=== PATIENT | male | born 1955 | race Caucasian/White ===

== ENCOUNTER 2018-02-04 01:07 | Outpatient (CLI) | payer OTHER, SELFPAY ==
--- NOTE | 2018-02-04 11:13 | DI.US_ITS ---
SYMPTOM/DIAGNOSIS: BILAT KIDNEY STONES, N20.0 RENAL ULTRASOUND: The right kidney measures 9.2 x 4.2 x 4.1 cm. The left kidney measures 9.8 x 6.1 x 5.6 cm. The pre-void bladder contains 26 cc. The post void bladder contains 17 cc. Bilateral ureteral jets are visualized. The prostatae is enlarged at 40 cc. Note is made of bilateral echogenic foci in the kidneys, the largest measures 4 mm in the mid pole of the left kidney. SUMMARY: Findings consistent with nephrolithiasis. There is no evidence of obstruction. The bladder is incompletely evaluated with the pre-void bladder volume of 26 cc, post void bladder volume is 17 cc. There is moderate prostatic enlargement.
== END 2018-02-04 01:27 ==
PROVIDERS: PCP Internal Medicine; Visit Provider Urology
DX: N20.0 Calculus of kidney (principal); N40.0 Benign prostatic hyperplasia without lower urinary tract symptoms
CPT/HCPCS: 76770; 99213

== ENCOUNTER 2018-08-18 00:20 | Outpatient (CLI) | payer OTHER, SELFPAY ==
--- NOTE | 2018-08-18 13:46 | DI.US_ITS ---
SYMPTOMS/DIAGNOSIS: MONITOR STONE BURDEN, BILATERAL KIDNEY STONES, CALCULUS OF KIDNEY-N20.0 RENAL ULTRASOUND: Renal ultrasound was performed according to the usual protocol. The kidneys are normal in size and shape. There are multiple calculi bilaterally. No evidence of hydronephrosis on either side. There appears to be an 8 mm calculus in the bladder. Comparison with examination of 02/04/18 shows no gross interval change in appearance of the multiple renal calculi noted.
== END 2018-08-18 00:40 ==
PROVIDERS: PCP Internal Medicine; Visit Provider Urology
DX: N20.0 Calculus of kidney (principal)
CPT/HCPCS: 76770

== ENCOUNTER → 2018-09-15 07:53 | Outpatient (BNVA) | payer OTHER, SELFPAY | PROVIDERS: PCP Internal Medicine; Visit Provider Urology | DX: N21.0 Calculus in bladder (principal); N20.0 Calculus of kidney | CPT/HCPCS: 99213 ==

== ENCOUNTER 2019-10-02 14:02 | Emergency (ER) | payer OTHER, SELFPAY ==
[2019-10-02 14:15] VITALS: BP 144/86; PULSE 118; RESP 16; TEMP 37; O2SAT 95
[2019-10-02 14:59] LABS: Abs Immature Grans 0.02 k/cumm (0.0-0.09); Absolute Basophil Count 0.01 k/cumm (0.0-0.2); Absolute Eosinophil Count 0.09 k/cumm (0.0-0.7); Absolute Lymphocyte Count 1.02 k/cumm (1.2-3.4); Absolute Monocyte Count 1.01 k/cumm (0.11-0.7); Basophils % 0.1; Eosinophils % 0.9; HCT 44.2 % (40.0-50.0); HGB 14.6 g/dL (13.5-17.5); Immature Grans % 0.2 %; Lymphocytes % 9.9; Mean Corpuscular Volume 93.8 fL (80-95); Mean Platelet Volume 9.4 fL (8.0-11.0); Monocytes % 9.8; Neutrophils % 79.1; Platelet Count 322 x1000/uL (130-400); RBC 4.71 m/cumm (4.50-6.00); RBC Distribution Width 13.3 % (11.8-14.1); White Blood Cell Count 10.35 k/cumm (4.4-10.8)
[2019-10-02 15:08] LABS: Bilirubin Small (Negative); Blood Large (Negative); Clarity Cloudy (Clear); Glucose Negative (Negative); Ketones 15 mg/dL (Negative); Leukocyte Esterase Negative (Negative); Nitrite Negative (Negative); Urobilinogen 0.2 EU/dL (Up TO 0.2)
[2019-10-02 15:10] LABS: ALT 7 U/L (16-63); AST 12 U/L (15-37); Albumin 2.8 g/dL (3.4-5.0); Alkaline Phosphatase 79 U/L (46-116); Anion Gap 9.8 mmol/L (3-11); BUN 15 mg/dL (7-18); Bilirubin, Total 0.6 mg/dL (0.2-1.0); CO2 28.2 mmol/L (21.0-32.0); CREATININE 0.98 mg/dL (0.70-1.30); Calcium 9.3 mg/dL (8.5-10.1); Chloride 101 mmol/L (98-107); Glucose 106 mg/dL (74-106); Potassium 4.1 mmol/L (3.5-5.1); Sodium 139 mmol/L (136-145); Total Protein 6.8 g/dL (6.4-8.2)
[2019-10-02 15:12] LABS: INR 1.3 (0.9-1.1); PTT Activated 39.7 sec (21.0-31.4); Prothrombin Time 12.7 sec (9.3-11.0)
[2019-10-02 15:20] LABS: C & S Indicated? Yes; RBC >50 HPF (0-2)
[2019-10-02 15:59] VITALS: BP 106/71; PULSE 98; RESP 14; TEMP 36.7; O2SAT 94
--- NOTE | 2019-10-02 16:12 | W.ED.GENAD ---
Discharge Plan Disposition Patient Disposition: HOME Condition: Fair Discharge Details Chief Complaint: Urinary Clinical Impression: Hematuria Primary Care Provider: Louis Esparza ED Provider: Emmie Stroud Home Meds and New Rx's Prescriptions: Continued atorvastatin [Lipitor] 20 MG tablet 20 mg PO QPM RF: 0 Xarelto 20 mg tablet 20 mg BID RF: 0 Discontinued clopidogrel [Plavix] 75 MG tablet 75 mg PO DAILY RF: 0 Discharge Instructions Instructions: Hematuria (ED) Additional Instructions: It does not appear that your bleeding enough to cause anemia at this time. I did speak with vascular surgery who advised continuing the Xarelto but stopping her Plavix. We discussed the risk and benefits of continuing your Xarelto and they feel that it is important that you continue with this at this time. However, if you develop clots in your urine, lightheadedness, weakness or other new/worsening symptoms I would like you to return immediately. Otherwise, I would like for you to have repeat blood work on Saturday as well as close follow-up with Dr. Guerra. Referrals: Rosendo Guerra MD [ [facility] STAFF PHYSICIAN] - Louis Esparza MD [Primary Care Provider] - Discharge Data Discharge Date/Time-TO BE ENTERED AT DEPARTURE: 10/02/19 17:25 Medical Decision Making <TAMMY Saeed - Last Filed: 10/03/19 08:23> 63-year-old gentleman anticoagulated with both Plavix and Xarelto as of yesterday because of a diagnosis of DVT presents with asymptomatic hematuria. He appears well, nontoxic and is hemodynamically stable. I will obtain a CBC, CMP, coags and urinalysis. Patient may very well only need a urology follow-up as he is asymptomatic but given his comorbidities, anticoagulated with both Plavix and Xarelto, I would like to speak with his vascular team, Dr. Vee Laboratory values unremarkable for obvious emergent process. Call placed to his vascular team at [facility] At time of shift change, care was signed out to TAMMY Stroud pending a vascular consultation Medical Records Medical records reviewed: Yes I reviewed the patient's medical records. Lab Data Lab results reviewed: Yes I reviewed the patient's lab results. Lab results narrative: 10/02/19 14:55 Urine - Reflex from Ua Urine Culture - Pending Laboratory Tests Range/Units 10/02/19 10/02/19 10/02/19 14:50 14:50 14:50 WBC (4.4-10.8) k/cumm 10.35 RBC (4.50-6.00) m/cumm 4.71 Hgb (13.5-17.5) g/dL 14.6 Hct (40.0-50.0) % 44.2 MCV (80-95) fL 93.8 MCH (27.0-33.0) pg 31.0 MCHC (32.0-36.0) g/dL 33.0 RDW (11.8-14.1) % 13.3 Plt Count (130-400) x1000/uL 322 MPV (8.0-11.0) fL 9.4 Immature Gran % % 0.2 Neutrophils % 79.1 Lymphocytes % 9.9 Monocytes % 9.8 Eosinophils % 0.9 Basophils % 0.1 Absolute Neutrophils (1.2-6.7) k/cumm 8.20 H Absolute Lymphocytes (1.2-3.4) k/cumm 1.02 L Absolute Monocytes (0.11-0.7) k/cumm 1.01 H Absolute Eosinophils (0.0-0.7) k/cumm 0.09 Absolute Basophils (0.0-0.2) k/cumm 0.01 PT (9.3-11.0) sec 12.7 H INR (0.9-1.1) 1.3 H APTT (21.0-31.4) sec 39.7 H Sodium (136-145) mmol/L 139 Potassium (3.5-5.1) mmol/L 4.1 Chloride (98-107) mmol/L 101 Carbon Dioxide (21.0-32.0) mmol/L 28.2 Anion Gap (3-11) mmol/L 9.8 BUN (7-18) mg/dL 15 Creatinine (0.70-1.30) mg/dL 0.98 Estimated GFR/1.73 m2 (mL/min/1.73m2) >= 60.00 Glucose (74-106) mg/dL 106 Calcium (8.5-10.1) mg/dL 9.3 Total Bilirubin (0.2-1.0) mg/dL 0.6 AST (15-37) U/L 12 L ALT (16-63) U/L 7 L Alkaline Phosphatase (46-116) U/L 79 Total Protein (6.4-8.2) g/dL 6.8 Albumin (3.4-5.0) g/dL 2.8 L Urine Color (Yellow) Urine Clarity (Clear) Urine pH (5-8) Ur Specific [place] (1.005-1.025) Urine Protein (Negative) mg/dL Urine Ketones (Negative) mg/dL Urine Blood (Negative) Urine Nitrite (Negative) Urine Bilirubin (Negative) Urine Urobilinogen (Up TO 0.2) EU/dL Ur Leukocyte Esterase (Negative) Urine RBC (0-2) HPF Urine WBC Ur Epithelial Cells Urine Crystals Urine Bacteria Urine Mucus Ur Culture Indicated? Urine Glucose (Negative) mg/dL Range/Units 10/02/19 14:55 WBC (4.4-10.8) k/cumm RBC (4.50-6.00) m/cumm Hgb (13.5-17.5) g/dL Hct (40.0-50.0) % MCV (80-95) fL MCH (27.0-33.0) pg MCHC (32.0-36.0) g/dL RDW (11.8-14.1) % Plt Count (130-400) x1000/uL MPV (8.0-11.0) fL Immature Gran % % Neutrophils % Lymphocytes % Monocytes % Eosinophils % Basophils % Absolute Neutrophils (1.2-6.7) k/cumm Absolute Lymphocytes (1.2-3.4) k/cumm Absolute Monocytes (0.11-0.7) k/cumm Absolute Eosinophils (0.0-0.7) k/cumm Absolute Basophils (0.0-0.2) k/cumm PT (9.3-11.0) sec INR (0.9-1.1) APTT (21.0-31.4) sec Sodium (136-145) mmol/L Potassium (3.5-5.1) mmol/L Chloride (98-107) mmol/L Carbon Dioxide (21.0-32.0) mmol/L Anion Gap (3-11) mmol/L BUN (7-18) mg/dL Creatinine (0.70-1.30) mg/dL Estimated GFR/1.73 m2 (mL/min/1.73m2) Glucose (74-106) mg/dL Calcium (8.5-10.1) mg/dL Total Bilirubin (0.2-1.0) mg/dL AST (15-37) U/L ALT (16-63) U/L Alkaline Phosphatase (46-116) U/L Total Protein (6.4-8.2) g/dL Albumin (3.4-5.0) g/dL Urine Color (Yellow) Red Urine Clarity (Clear) Cloudy Urine pH (5-8) 6.0 Ur Specific [place] (1.005-1.025) 1.020 Urine Protein (Negative) mg/dL 100 H Urine Ketones (Negative) mg/dL 15 H Urine Blood (Negative) Large H Urine Nitrite (Negative) Negative Urine Bilirubin (Negative) Small H Urine Urobilinogen (Up TO 0.2) EU/dL 0.2 Ur Leukocyte Esterase (Negative) Negative Urine RBC (0-2) HPF >50 H Urine WBC Not Applicable Ur Epithelial Cells Not Applicable Urine Crystals Not Applicable Urine Bacteria Not Applicable Urine Mucus Not Applicable Ur Culture Indicated? Yes Urine Glucose (Negative) mg/dL Negative <TAMMY Menijvar - Last Filed: 10/02/19 22:07> Care transition to myself from Segundo Griffin PA-C with consultation pending. Please see his initial note regarding presentation, history and exam. In brief, patient is a pleasant 63-year-old gentleman recently diagnosed with a lower extremity DVT. He was placed on Xarelto by vascular surgery. He is presenting 1 day after starting the medication endorsing hematuria. Patient reports it is pink to red. Not has weakness or lightheadedness. Initial laboratory evaluation showed a stable H&H. Large amount of blood noted in the urine. [place] [facility] [place] advised that he needs the anticoagulation for DVT. She advised that the patient would otherwise need IVC filter and admission. We discussed treatment options. At this time, we are unclear how much the patient is bleeding and if this is unstable bleeding. No clots in the urine noted by patient. She advised follow-up with urology as well as follow-up H&H. She did advise on return precautions Including worsening bleeding, weakness, clots, lightheadedness. She advised holding the plavix for now with close follow up. Spoke with Dr. Guerra who will see the patient in follow up next week. Will ensure that care managers are aware of this request, Dr. Guerra would likeot see next week. Patient has seen Dr. Guerra historically for nephrolithiasis. Spoke with patient's primary care provider who will order repeat laboratory evaluation, which agree to monitor the H&H, from Saturday. Discussed this plan with the patient. He has been urinating since being here. Continues to deny any blood clots. Has noted pink urine. Patient does appear hemodynamically stable and safe for discharge. He was given strict return precautions. All of his questions and concerns were addressed and he is in agreement this plan. He will hold the Plavix but continue on Xarelto as advised by Dr. Manley. HPI <TAMMY Saeed - Last Filed: 10/03/19 08:23> General Mode of arrival: ambulatory. Date/Time Provider Initiated Documentation: 10/02/19 14:25. Limitations to Documentation: no limitations. Information obtained by: patient. HPI Narrative: This is a 63-year-old gentleman with history of peripheral vascular disease, DVT, former smoker, presenting to the ER today for evaluation of hematuria that began yesterday. Patient reports that he was seen at [facility] yesterday by Dr. Vee, his vascular specialist. He was diagnosed with a DVT and started on Xarelto. He already takes Plavix. He contacted his provider today to discuss his nonpainful or traumatic hematuria and they recommended coming to the ER for further evaluation. He denies any recent illness or trauma. Denies fever, chest pain, abdominal pain, nausea, vomiting, back pain, dysuria, urinary frequency, pain in his penis or testicles. Related Data Home Medications Medication Instructions Recorded Confirmed atorvastatin [Lipitor] 20 mg PO QPM 11/26/16 10/02/19 Xarelto 20 mg BID 10/02/19 10/02/19 Allergies Allergy/AdvReac Type Severity Reaction Status Date / Time aspirin Allergy Intermediate Swelling/Ed Unverified 10/02/19 14:20 dominic ibuprofen [From Advil] Allergy Intermediate Swelling/Ed Unverified 10/02/19 14:20 dominic General Stated Complaint: Urinary MICHAEL: 3 Review of Systems <TAMMY Saeed - Last Filed: 10/03/19 08:23> Constitutional Constitutional: Denies fatigue, Denies fever(s) and Denies headache(s) ENT Ears, Nose, Mouth, and Throat: Denies headache(s) Cardiovascular Cardiovascular: Denies chest pain and Denies dyspnea Respiratory Respiratory: Denies cough and Denies dyspnea Gastrointestinal Gastrointestinal: Denies abdominal pain, Denies melena, Denies hematochezia, Denies nausea and Denies vomiting Genitourinary Genitourinary: Reports hematuria and Denies dysuria Musculoskeletal Musculoskeletal: Denies back pain Integumentary/Breasts Skin/Breast: Denies rash Neurologic Neurologic: Denies headache(s) Endocrine Endocrine: Denies fatigue Hematologic/Lymphatic Hematologic/Lymphatic: Denies easy bleeding and Denies easy bruising PFSH <TAMMY Saeed - Last Filed: 10/03/19 08:23> Medical History Groin pain PVD (peripheral vascular disease) Surgical History Colonoscopy - IV Sedation (11/26/16) Family History Sister DVT (deep venous thrombosis) Social History Smoking/Tobacco Use Status: Former Tobacco Use Alcohol Intake: never Drug use: Never Substance use type: does not use Do you feel safe at home: Yes Do you feel safe in your relationship?: Yes Exam <TAMMY Saeed - Last Filed: 10/03/19 08:23> Const General: cooperative, healthy appearing, comfortable and no acute distress Orientation: alert, awake and oriented x3 HENMT Head: normal to inspection, normocephalic and atraumatic Mouth: moist mucous membranes Eyes Conjunctivae: conjunctivae normal Sclera: sclerae normal Neck Neck: normal visual inspection, full ROM, trachea midline and supple Resp Effort & Inspection: normal respiratory effort and able to speak in complete sentences Auscultation: clear to auscultation bilaterally Cardio Rate: regular rate Rhythm: regular rhythm GI Inspection: normal to inspection Palpation: soft and nontender Penis: normal penis Meatus: meatus normal Scrotum: scrotum normal Testes: normal Back/Spine/Pelvis Back: No back tenderness Skin General skin exam: no rashes or lesions noted Neuro General: patient alert, patient awake, patient oriented x3, moves all extremities and no focal motor deficits Cognition: normal cognition Speech: speech normal Gait: normal gait Motor: muscle tone normal throughout and strength 5/5 throughout Sensory Exam: no sensory deficits noted Extrem Right upper extremity: normal to inspection, full ROM and normal capillary refill Left upper extremity: normal to inspection, full ROM and normal capillary refill Right lower extremity: full ROM, normal capillary refill, edema Details: pitting and 1+ and lower leg Details: pitting edema (Right lower leg swelling, minimal erythema without warmth or tenderness) Details: 1+; no cyanosis Left lower extremity: normal to inspection, full ROM and normal capillary refill Psych Appearance: grossly normal Mental Status: mental status grossly normal Course <TAMMY Saeed - Last Filed: 10/03/19 08:23> Vital Signs Vital signs: Vital Signs Temperature 37.0 C 10/02/19 14:15 Pulse 118 H 10/02/19 14:15 Respiratory Rate 16 10/02/19 14:15 Blood Pressure 144/86 H 10/02/19 14:15 Pulse Oximetry 95 10/02/19 14:15 Temperature 36.7 C 10/02/19 15:59 Temperature Source Tympanic 10/02/19 15:59 Pulse 98 H 10/02/19 15:59 Respiratory Rate 14 10/02/19 15:59 Respiratory Effort Non-Labored 10/02/19 14:19 Blood Pressure 106/71 10/02/19 15:59 Blood Pressure Position Sitting 10/02/19 14:15 Pulse Oximetry 94 L 10/02/19 15:59 Oxygen Delivery Method Room Air 10/02/19 15:59 Oxygen Flow Rate 0 10/02/19 15:59 Pain Level 4 10/02/19 15:59 Lab/Test Results Lab/Test Results: 10/02/19 14:55 Urine - Reflex from Ua Urine Culture - Pending Laboratory Tests Range/Units 10/02/19 10/02/19 10/02/19 14:50 14:50 14:50 WBC (4.4-10.8) k/cumm 10.35 RBC (4.50-6.00) m/cumm 4.71 Hgb (13.5-17.5) g/dL 14.6 Hct (40.0-50.0) % 44.2 MCV (80-95) fL 93.8 MCH (27.0-33.0) pg 31.0 MCHC (32.0-36.0) g/dL 33.0 RDW (11.8-14.1) % 13.3 Plt Count (130-400) x1000/uL 322 MPV (8.0-11.0) fL 9.4 Immature Gran % % 0.2 Neutrophils % 79.1 Lymphocytes % 9.9 Monocytes % 9.8 Eosinophils % 0.9 Basophils % 0.1 Absolute Neutrophils (1.2-6.7) k/cumm 8.20 H Absolute Lymphocytes (1.2-3.4) k/cumm 1.02 L Absolute Monocytes (0.11-0.7) k/cumm 1.01 H Absolute Eosinophils (0.0-0.7) k/cumm 0.09 Absolute Basophils (0.0-0.2) k/cumm 0.01 PT (9.3-11.0) sec 12.7 H INR (0.9-1.1) 1.3 H APTT (21.0-31.4) sec 39.7 H Sodium (136-145) mmol/L 139 Potassium (3.5-5.1) mmol/L 4.1 Chloride (98-107) mmol/L 101 Carbon Dioxide (21.0-32.0) mmol/L 28.2 Anion Gap (3-11) mmol/L 9.8 BUN (7-18) mg/dL 15 Creatinine (0.70-1.30) mg/dL 0.98 Estimated GFR/1.73 m2 (mL/min/1.73m2) >= 60.00 Glucose (74-106) mg/dL 106 Calcium (8.5-10.1) mg/dL 9.3 Total Bilirubin (0.2-1.0) mg/dL 0.6 AST (15-37) U/L 12 L ALT (16-63) U/L 7 L Alkaline Phosphatase (46-116) U/L 79 Total Protein (6.4-8.2) g/dL 6.8 Albumin (3.4-5.0) g/dL 2.8 L Urine Color (Yellow) Urine Clarity (Clear) Urine pH (5-8) Ur Specific [place] (1.005-1.025) Urine Protein (Negative) mg/dL Urine Ketones (Negative) mg/dL Urine Blood (Negative) Urine Nitrite (Negative) Urine Bilirubin (Negative) Urine Urobilinogen (Up TO 0.2) EU/dL Ur Leukocyte Esterase (Negative) Urine RBC (0-2) HPF Urine WBC Ur Epithelial Cells Urine Crystals Urine Bacteria Urine Mucus Ur Culture Indicated? Urine Glucose (Negative) mg/dL Range/Units 10/02/19 14:55 WBC (4.4-10.8) k/cumm RBC (4.50-6.00) m/cumm Hgb (13.5-17.5) g/dL Hct (40.0-50.0) % MCV (80-95) fL MCH (27.0-33.0) pg MCHC (32.0-36.0) g/dL RDW (11.8-14.1) % Plt Count (130-400) x1000/uL MPV (8.0-11.0) fL Immature Gran % % Neutrophils % Lymphocytes % Monocytes % Eosinophils % Basophils % Absolute Neutrophils (1.2-6.7) k/cumm Absolute Lymphocytes (1.2-3.4) k/cumm Absolute Monocytes (0.11-0.7) k/cumm Absolute Eosinophils (0.0-0.7) k/cumm Absolute Basophils (0.0-0.2) k/cumm PT (9.3-11.0) sec INR (0.9-1.1) APTT (21.0-31.4) sec Sodium (136-145) mmol/L Potassium (3.5-5.1) mmol/L Chloride (98-107) mmol/L Carbon Dioxide (21.0-32.0) mmol/L Anion Gap (3-11) mmol/L BUN (7-18) mg/dL Creatinine (0.70-1.30) mg/dL Estimated GFR/1.73 m2 (mL/min/1.73m2) Glucose (74-106) mg/dL Calcium (8.5-10.1) mg/dL Total Bilirubin (0.2-1.0) mg/dL AST (15-37) U/L ALT (16-63) U/L Alkaline Phosphatase (46-116) U/L Total Protein (6.4-8.2) g/dL Albumin (3.4-5.0) g/dL Urine Color (Yellow) Red Urine Clarity (Clear) Cloudy Urine pH (5-8) 6.0 Ur Specific [place] (1.005-1.025) 1.020 Urine Protein (Negative) mg/dL 100 H Urine Ketones (Negative) mg/dL 15 H Urine Blood (Negative) Large H Urine Nitrite (Negative) Negative Urine Bilirubin (Negative) Small H Urine Urobilinogen (Up TO 0.2) EU/dL 0.2 Ur Leukocyte Esterase (Negative) Negative Urine RBC (0-2) HPF >50 H Urine WBC Not Applicable Ur Epithelial Cells Not Applicable Urine Crystals Not Applicable Urine Bacteria Not Applicable Urine Mucus Not Applicable Ur Culture Indicated? Yes Urine Glucose (Negative) mg/dL Negative Sign Out <TAMMY Saeed - Last Filed: 10/03/19 08:23> Sign Out Data: Sign Out Comment: Asymptomatic hematuria. History of PVD. On Plavix and as of yesterday on Xarelto secondary to right leg DVT. Work-up complete, awaiting vascular consultation from [facility] Last updated by Breezy Griffin PA at 10/02/19 16:21
[2019-10-02 17:18] VITALS: BP 128/78; PULSE 106; RESP 20; TEMP 37.1; O2SAT 99
--- NOTE | 2019-10-02 17:30 | NUR.NOTE ---
Nursing Note: rerferal to anna elliott
== END 2019-10-02 17:25 | disposition home or self-care (01) ==
PROVIDERS: Physician Assistant; Emergency Provider Physician Assistant; PCP Internal Medicine
DX: R31.9 Hematuria, unspecified (principal); T45.515A Adverse effect of anticoagulants, initial encounter; I82.421 Acute embolism and thrombosis of right iliac vein; Z79.01 Long term (current) use of anticoagulants
CPT/HCPCS: 36415; 80053; 99283; 81003; 81015; 85025; 85610; 85730; 87086

== ENCOUNTER 2019-10-05 10:43 | Outpatient (REF) | payer OTHER, SELFPAY ==
[2019-10-05 20:45] LABS: Abs Immature Grans 0.02 k/cumm (0.0-0.09); Absolute Basophil Count 0.03 k/cumm (0.0-0.2); Absolute Eosinophil Count 0.19 k/cumm (0.0-0.7); Absolute Lymphocyte Count 1.63 k/cumm (1.2-3.4); Absolute Monocyte Count 0.75 k/cumm (0.11-0.7); Absolute Neutrophil Count 5.25 k/cumm (1.2-6.7); Basophils % 0.4; Eosinophils % 2.4; HCT 46.5 % (40.0-50.0); HGB 15.4 g/dL (13.5-17.5); Immature Grans % 0.3 %; Lymphocytes % 20.7; Mean Corp. HGB Concentration 33.1 g/dL (32.0-36.0); Mean Corpuscular Hemoglobin 31.2 pg (27.0-33.0); Mean Corpuscular Volume 94.3 fL (80-95); Monocytes % 9.5; Neutrophils % 66.7; Platelet Count 513 x1000/uL (130-400); RBC 4.93 m/cumm (4.50-6.00); RBC Distribution Width 13.1 % (11.8-14.1); White Blood Cell Count 7.87 k/cumm (4.4-10.8)
== END 2019-10-05 11:03 ==
LOC: NCHCN 10:43
PROVIDERS: PCP Internal Medicine; Visit Provider Internal Medicine
DX: D64.9 Anemia, unspecified (principal)
CPT/HCPCS: 85025

== ENCOUNTER → 2019-10-08 14:51 | Outpatient (BNVA) | payer OTHER, SELFPAY | PROVIDERS: PCP Internal Medicine; Referring Provider Internal Medicine; Visit Provider Urology | DX: R31.0 Gross hematuria (principal); R35.0 Frequency of micturition | CPT/HCPCS: 99213 ==

== ENCOUNTER 2019-10-15 01:50 | Outpatient (CLI) | payer OTHER, SELFPAY ==
[2019-10-15] MEDS: Omnipaque 350 MG/ML 100 ML BTL IJ (09:05)
[2019-10-15] MEDS: Normal Saline - Diluent 50 ML VIAL IV (09:05)
--- NOTE | 2019-10-15 09:06 | DI.CT_ITS ---
EXAM: CT ABDOMEN PELVIS WO/W TECHNIQUE: Imaging Protocol: Axial computed tomography images with coronal and sagittal reformatted images were created and reviewed. Images were performed without IV contrast, followed by imaging during nephrographic phase and and miguel angel lographic phase. CONTRAST MATERIAL: Intravenous: Omnipaque 350 Contrast volume:100 ml Contrast route:IV - Oral: / no COMPARISON: CT RENAL COLIC WO CONTRAST from 02/28/2017 FINDINGS: There are numerous bilateral stones within both kidneys. There are 2 stones within the left renal pe lvis. There is a 9 millimeters stone seen in the proximal left ureter causing mild hydronephrosis.. There is mild to moderate right hydronephrosis.. There are 3 adjacent stones seen in the distal 3rd the right ureter, measuring 3, 7 and 8 millimeters. There is no visible delay in nephrogram or pyel ogram. No renal masses are seen. There is a cyst at the upper pole of the left kidney. Other tiny cysts are seen. The bladder contains numerous calculi. There is [id number] diffuse bladder wa ll thickening. The prostate is mildly enlarged and impresses on the base of the bladder. Large bullae are again noted at the left lung base. Lungs are otherwise clear. A cyst is again note d in the left lobe of the liver. The gallbladder, spleen, adrenals and pancreas are unremarkable. N o bowel dilatation or inflammatory changes are seen. There is a moderate quantity of stool. The ac endix appears normal. Bilateral fatty containing inguinal hernias. Degenerative changes are seen in the spine There are atherosclerotic changes of the abdominal aorta and a small aneurysm measuring 2.6 cm showin g mural thrombus. The iliac arteries are also heavily calcified. On the venous phase images, there is a filling defect seen within the right external iliac vein exten ding inferiorly through the visualized portion of the femoral vein. IMPRESSION: 1. Bilateral nephrolithiasis. Multiple stones are seen in both ureters. Multiple bladder calculi. Enlarged prostate and bladder thickening. 2. Apparent deep venous thrombosis from the right external iliac through femoral veins. 3. 2.6 centimeter abdominal aortic aneurysm. RADIATION DOSE DELIVERED: 1,909.28mGy.cm Total DLP DATA REPOSITORY: All CT scans at this facility are submitted to the National Radiology Data Registry (NRDR) Dose Index Registry (DIR) with the [employer] ([employer]). RADIATION OPTIMIZATION: All CT scans at this facility use at least one of these dose optimization te chniques: automated exposure control; mA and/or kV adjustment per patient size (includes targeted exa ms where dose is matched to clinical indication); or iterative reconstruction.
== END 2019-10-15 02:10 ==
PROVIDERS: PCP Internal Medicine; Visit Provider Urology
DX: N13.2 Hydronephrosis with renal and ureteral calculous obstruction (principal); I71.4 Abdominal aortic aneurysm, without rupture; J43.0 Unilateral pulmonary emphysema [MacLeod's syndrome]; K76.89 Other specified diseases of liver
CPT/HCPCS: 74178; J3490

== ENCOUNTER → 2019-10-19 10:21 | Outpatient (BNVA) | payer OTHER, SELFPAY | PROVIDERS: PCP Internal Medicine; Referring Provider Internal Medicine; Visit Provider Urology | DX: R31.0 Gross hematuria (principal); N21.0 Calculus in bladder; N20.2 Calculus of kidney with calculus of ureter; Z79.01 Long term (current) use of anticoagulants | CPT/HCPCS: 99213 ==

== ENCOUNTER 2020-01-07 11:09 | Outpatient (REF) | payer OTHER, SELFPAY ==
[2020-01-07 21:05] LABS: HCT 46.1 % (40.0-50.0); HGB 14.6 g/dL (13.5-17.5); MCH 31.2 pg (27.0-33.0); MCHC 31.7 % (32.0-36.0); MCV 98.5 fL (80-95); MPV 10.4 fL (8.0-11.0); Platelet Count 350 10^3/uL (130-400); RBC 4.68 10^6/uL (4.36-5.78); RDW 13.2 % (11.8-14.1); RDW-SD 47.5 fL; WBC 6.71 10^3/uL (4.4-10.8)
[2020-01-07 21:21] LABS: ALT 8 U/L (16-63); AST 13 U/L (15-37); Albumin 3.8 g/dL (3.4-5.0); Alkaline Phosphatase 88 U/L (46-116); Anion Gap 6.3 mmol/L (3-11); BUN 13 mg/dL (7-18); Bilirubin, Total 0.3 mg/dL (0.2-1.0); CO2 30.7 mmol/L (21.0-32.0); CREATININE 0.99 mg/dL (0.70-1.30); Calcium 9.2 mg/dL (8.5-10.1); Chloride 106 mmol/L (98-107); Glucose 101 mg/dL (74-106); Potassium 3.8 mmol/L (3.5-5.1); Sodium 143 mmol/L (136-145); TSH 1.06 uIU/mL (0.36-3.74); Total Protein 6.7 g/dL (6.4-8.2)
[2020-01-08 21:48] LABS: PSA, Screening 2.5 ng/mL (0.0-4.5)
== END 2020-01-07 11:29 ==
LOC: NCHCN 11:09
PROVIDERS: PCP Internal Medicine; Visit Provider Internal Medicine
DX: R63.4 Abnormal weight loss (principal); Z86.718 Personal history of other venous thrombosis and embolism; R00.0 Tachycardia, unspecified; R31.0 Gross hematuria
CPT/HCPCS: 80053; 84153; 85027; 84443

== ENCOUNTER → 2020-03-22 12:50 | Outpatient (BNVA) | payer OTHER, SELFPAY | PROVIDERS: PCP Internal Medicine; Referring Provider Internal Medicine; Visit Provider Urology | DX: N20.2 Calculus of kidney with calculus of ureter (principal); N21.0 Calculus in bladder | CPT/HCPCS: 81003; 99213; 99214 ==

== ENCOUNTER 2020-04-04 02:08 | Outpatient (CLI) | payer OTHER, SELFPAY ==
[2020-04-05 12:39] LABS: COVID-19 RT-PCR UVMMC Result Negative (Negative)
== END 2020-04-04 02:28 ==
PROVIDERS: PCP Internal Medicine; Visit Provider Urology
DX: Z11.52 Encounter for screening for COVID-19 (principal)
CPT/HCPCS: U0003

== ENCOUNTER 2020-04-07 07:06 | Day surgery (SDC) | payer OTHER, SELFPAY ==
[2020-04-07] VITALS (10 sets, daily range): BP systolic 99–151; BP diastolic 65–96; PULSE 75–95; RESP 12–20; TEMP 36.3–36.9; O2SAT 91–98
[2020-04-07] MEDS: Lactated Ringers 1,000 ML 80 ML IV (08:18)
--- NOTE | 2020-04-07 09:20 | W.PM.HP.N ---
Date of service: 04/07/20 Time of Service: 09:20 Assessment and Plan Assessment and plan (1) Bladder stone: Status: Acute (2) Right distal ureteral calculus: Status: Acute Assessment and plan: We will plan on doing cystoscopy and evacuation of his bladder stones. We would do bilateral retrograde pyelograms to identify any residual ureteral stones and perform ureteral. Based on his prior CT scan, right ureteral stone is quite distal. There has not been any residual hydronephrosis on the left, so hopefully his left ureteral stones have passed. (3) Bilateral kidney stones: Status: Acute History of Present Illness History of Present Illness Chief Complaint: Ureteral stones Narrative: This is a 64-year-old gentleman who has been seen previously for bilateral kidney stones. He underwent bilateral staged ureteroscopic procedures. He recently had an episode of renal colic. By CT scan, he was found to have multiple stones within the bladder, right distal ureteral stones and left proximal ureteral stone. He was on anticoagulants and did not want to travel to a larger facility for his procedure, so we waited until 6 months had passed and he was able to come off of his anticoagulants more safely. We have been monitoring him with ultrasound. He has had some persistent right-sided hydronephrosis, but none on the left. He has passed multiple stones, so we are not exactly sure of his current stone burden. We have proposed cystoscopy with evacuation of any residual bladder stones, bilateral retrograde pyelogram and possible bilateral ureteroscopy's for his ureteral stones. He does have bilateral kidney stones, but we are not proposing that we treat them currently as they are nonobstructing. Review of Systems Narrative: No fevers or chills No vision change or dysphasia No diabetes or thyroid dysfunction No shortness of breath, cough or hemoptysis No chest pain or palpitations No nausea, vomiting, hepatitis, ulcers, jaundice No seizures, strokes or peripheral neuropathy Hx DVT No gout or arthralgia [facility] Medical History (Updated 04/07/20 @ 07:53 by Ivania Blanca) DVT (deep venous thrombosis) Groin pain Kidney stone PVD (peripheral vascular disease) Right distal ureteral calculus Surgical History (Updated 04/07/20 @ 07:52 by Ivania Blanca) Colonoscopy - IV Sedation (11/26/16) History of cystoscopy History of surgery Per pt, surgery to veins in right leg r/t DVT. -BR Family History Sister DVT (deep venous thrombosis) Social History Smoking/Tobacco Use Status: Current-Occasional Tobacco Type: cigars Smoking risk assessment performed?: Yes Alcohol Intake: former Drug use: Never Substance use type: does not use Do you feel safe at home: Yes Do you feel safe in your relationship?: Yes Meds Home Medications and Allergies Home Medications Medication Instructions Recorded Confirmed Type atorvastatin [Lipitor] 20 mg PO QPM 11/26/16 04/07/20 History Xarelto 20 mg BID 10/02/19 04/07/20 History oxycodone 5 mg capsule 5 mg PO Q6H PRN #20 cap MDD 4 03/22/20 04/07/20 Rx enoxaparin 60 mg SUBCUT BID 04/06/20 04/07/20 History Allergies Allergy/AdvReac Type Severity Reaction Status Date / Time aspirin Allergy Intermediate Swelling/Ed Unverified 04/07/20 07:51 dominic ibuprofen [From Advil] Allergy Intermediate Swelling/Ed Unverified 04/07/20 07:51 dominic Exam Const General: cooperative and no acute distress Neck Neck: supple Resp Effort & Inspection: normal respiratory effort Auscultation: clear to auscultation bilaterally Cardio Rate: regular rate Rhythm: regular rhythm GI Palpation: soft and no masses Neuro General: patient alert, patient awake and patient oriented x3 Results Last Vital Signs Temp 36.9 C 04/07/20 07:53 Pulse 95 H 04/07/20 07:53 Resp 18 04/07/20 07:53 BP 99/69 L 04/07/20 07:53 Pulse Ox 96 04/07/20 07:53 COVID-19 Screening Have you, or household traveled for leisure in last 14 days?: No Had IN PERSON contact w/suspected or confirmed C-19 person: No
--- NOTE | 2020-04-07 09:30 | DI.RAD_ITS ---
EXAM: XR RETROGRADE IN OR CLINICAL HISTORY: kdiney stone TECHNIQUE: 2D and realtime digital imaging was performed. CONTRAST MATERIAL: Refer to procedure report. COMPARISON: No exams were available for comparison FINDINGS: Fluoroscopy was provided for Dr. Guerra during the performance of a retrograde evaluation of the narayan l collecting system. Please refer to the procedure report for complete details. Fluoro time: 56.4 seconds IMPRESSION: RADIATION DOSE DELIVERED:
[2020-04-07] MEDS: ceFAZolin 1 GM/50 ML BAG IVPB (09:59)
[2020-04-07] MEDS: Lidocaine 2% Jelly 6 ML SYR (10:32)
[2020-04-07] MEDS: Omnipaque 300 MG/ML 50 ML BTL (11:43)
--- NOTE | 2020-04-07 11:57 | W.PM.DSUDISC ---
Discharge Plan Disposition Patient Disposition: HOME Condition: Stable Discharge Details Reason For Visit: ureteral and bladder stones Attending Provider: Rosendo Guerra Primary Care Provider: Louis Esparza Home Meds and New Rx's Prescriptions: No Action oxycodone 5 mg capsule 5 mg PO Q6H MDD 4 PRN (Reason: pain) Qty: 20 RF: 0 atorvastatin [Lipitor] 20 MG tablet 20 mg PO QPM RF: 0 Xarelto 20 mg tablet 20 mg BID RF: 0 enoxaparin 60 mg/0.6 mL syringe 60 mg subcut BID RF: 0 Discharge Instructions Additional Instructions: restart Xaralto as arranged by PCP Followup early next week for stent removal - tell my office pt has 2 stents with strings on each Followup appt with provider 6 to 8 weeks with renal US no need to strain urine Activity:: Activity as Tolerated Shower/Bathe:: 24 hours Diet:: As Tolerated Discharge Orders Discharge Orders: Discharge Order (Routine); Ordered 04/07/20 Ordered By: Rosendo Guerra DS: Diagnosis Discharge Diagnosis (1) Bladder stone: Status: Acute (2) Right distal ureteral calculus: Status: Acute (3) Bilateral kidney stones: Status: Acute
--- NOTE | 2020-04-07 12:26 | ROE_ITS ---
Date of service: 04/07/20 Time of Service: 12:03 Operative Note Operative Note DATE OF PROCEDURE: 04/07/20 PRE-OP DIAGNOSIS: 1. Bladder stones 2. Bilateral ureteral stones 3. Bilateral kidney stones POST-OP DIAGNOSIS: same PROCEDURE: Cystoscopy, holmium laser lithotripsy of bladder stones, evacuation of bladder stones Right retrograde pyelogram, right ureteroscopy with holmium laser lithotripsy of ureteral stones, right ureteral stone extraction, insert right ureteral stent Left retrograde pyelogram, left ureteroscopy, left ureteral stone extraction, insert left ureteral stent SURGEON: Rosendo Guerra ANESTHESIA: other (General with LMA) ESTIMATED BLOOD LOSS: 83 PATHOLOGY: other (1. Bladder stones 2. Right ureteral stones 3. Left ureteral stones) COMPLICATIONS: None Patient was transported to: PACU Patient's condition: stable Implants: Bilateral 6 [place]er by 22 to 30 cm ureteral stents Indications: This is a 64-year-old gentleman who has a history of bilateral kidney stones. He was identified as having stones within the bladder, right distal ureteral stones and left proximal ureteral stone. He also had non obstructing stones in both kidneys. His surgical procedure has not been done promptly because he was on anticoagulants but could not be discontinued safely for 6 months. Now that he has passed the 6-month threshold, he presents for stone manipulation. Findings: Multiple small bladder stones Bilateral large distal ureteral stones Procedure Description: The patient was brought to the operating room on 04/07/2020. After successful induction of general anesthesia without intubation, he was placed in the dorsolithotomy position. His genitalia was prepped and draped. She was given a dose of preoperative IV antibiotics. A 22 [place]er rigid cystoscope was passed through the urethra into the bladder. The urethra and bladder were inspected with the 30 degree lens. The pendulous, bulbous and membranous urethra appeared normal. The prostatic urethra showed trilobar enlargement with a prominent median lobe. Once the bladder neck was entered, the bladder mucosa was inspected. Multiple irregularly-shaped bladder stones were identified. The largest of these stones measured between 5 and 10 mm. These stones were evacuated with a Monika syringe. Some of the stones required grasping with the alligator forceps. The largest stones were treated with the 972 ?m holmium laser fiber. We used a p ower setting of 800 and a rate of 8. The stones fragmented quite well. The stones were sent to pathology for chemical analysis. We then turned our attention to the right ureter. The orifice was identified and was cannulated with a 6 [place] Islander access catheter. Retrograde film was obtained by injecting Omnipaque through the access catheter under fluoroscopic guidance. A large filling defect was identified within the distal ureter. I passed a Glidewire up through the access catheter and maneuvered the wire up the remainder of the ureter. I then introduced the semirigid ureteroscope through the urethra into the bladder. The scope was advanced up the right ureter. A large stone was identified. We then fragmented the stone using a 365 ?m holmium laser fiber. We again used a power setting of 800 and a rate of 8. Once the stone had been fragmented, the fragments were collected in a Bibi stone basket and removed in their entirety. Once the right ureter had been cleared of visible stones, we turned our attention to the left ureter. I was unable to pass a ureteral access catheter directly into the left ureter, but I was able to pass a guidewire through the access catheter and maneuvered the wire up the distal ureter. I was then able to pass the access catheter over the wire. A retrograde pyelogram was obtained by injecting Omnipaque through the access catheter under fluoroscopic guidance. Again, the filling defect was outlined in the distal ureter. I reintroduced the wire through the lumen of the access catheter and we utilized the wire as a safety wire. I passed the semirigid ureteroscope through the urethra into the bladder and into the left ureteral orifice. Multiple stones were seen in each was grabbed in a Bibi stone basket and removed in its entirety. Again, once all visible stones had been removed, I elected to place bilateral ureteral stents. I chose 6 [place] variable length stents. I passed each of the stents over the corresponding guidewire and advanced the stent until the proximal end was up in the renal pelvis and the distal end was within the bladder. Once stents were positioned, the guidewires were removed. We left the safety strings in place and brought the strings through the urethra. We anchored the strings onto the dorsum of the penis using a Steri-Strip. The bladder stone, right ureteral stone and left ureteral stones were all sent to pathology for chemical analysis. They were sent separately in 3 different specimens. He tolerated this procedure well with no complications. He was taken to the recovery room in stable condition. Once the bladder stones have been removed,
[2020-04-07] MEDS: fentaNYL 100 MCG/2 ML VIAL IVP ×2 (12:36→12:48)
[2020-04-07] MEDS: Phenazopyridine 200 MG TAB PO (12:46)
[2020-04-07] MEDS: oxyCODONE 5 MG TAB PO (13:57)
[2020-04-15 16:52] LABS: Source: Left Ureter; Source: Right Ureter
== END 2020-04-07 15:13 | disposition home or self-care (01) ==
PROVIDERS: PCP Internal Medicine; Visit Provider Urology
PROC: (CPT 52356; principal; 2020-04-07 09:00)
DX: N21.0 Calculus in bladder (principal); N20.1 Calculus of ureter; N20.0 Calculus of kidney
CPT/HCPCS: 52356; 52352; 52317; NC; 74420; 82365; J0690; J1100; J2001; J2405; J2704; J3010; Q9967

== ENCOUNTER → 2020-04-11 07:53 | Outpatient (BNVA) | payer OTHER, SELFPAY | PROVIDERS: PCP Internal Medicine; Referring Provider Internal Medicine; Visit Provider Urology | DX: N21.0 Calculus in bladder (principal); N20.2 Calculus of kidney with calculus of ureter | CPT/HCPCS: 99213 ==